=== PATIENT | female | born 1985 | race Caucasian/White ===

== ENCOUNTER 2017-01-27 02:02 | Emergency (ER) | payer OTHER ==
[~2017-01-27] VITALS: Ht 162.6 cm; Wt 54.4 kg
[~2017-01-27 02:02] MED LIST: ORTHO TRI-CYCL1 EACH; PREDNISONE 20 M20 MG PO
[2017-01-27] MEDS ORDERED: PREDNISONE 10 M10 M1 PO (02:31)
[2017-01-27 02:48] VITALS: BP 125/64
== END 2017-01-27 02:49 | disposition home or self-care (01) ==
LOC: ER 02:02
DX: L25.9 Unspecified contact dermatitis, unspecified cause (principal); Z98.890 Other specified postprocedural states

== ENCOUNTER 2020-07-11 01:10 | Emergency (ER) | payer OTHER ==
[~2020-07-11] VITALS: Ht 162.6 cm; Wt 63.5 kg
[~2020-07-11 01:10] MED LIST changes: +PREDNISONE 10 M10 M1 PO
[2020-07-11 01:13] VITALS: BP 110/74
[2020-07-11] MEDS ORDERED: ENBRACE HR SOF1 EACH PO (01:23)
[2020-07-11] MEDS ORDERED: KEFLEX500 M1 PO (01:36)
== END 2020-07-11 01:46 | disposition home or self-care (01) ==
LOC: ER 01:10
DX: O99.712 Diseases of the skin and subcutaneous tissue complicating pregnancy, second trimester (principal); L03.032 Cellulitis of left toe; Z79.899 Other long term (current) drug therapy; Z98.890 Other specified postprocedural states; Z3A.24 24 weeks gestation of pregnancy